=== PATIENT | female | born 2000 | race American Indian/Alaskan Native ===

== ENCOUNTER 2022-01-21 22:45 | Inpatient (IN) | payer MEDICAID ==
[~2022-01-21 22:45] MED LIST: ACETAMINOPHEN 325 MG TAB PO PRN; AMPICILLIN/NS 2 GM/100 ML 2 GM/100 ML BAG IV ONE; BUTORPHANOL 2 MG/1 ML INJ IV PRN; CARBOPROST TROMETHAMINE 250 MCG/1 ML INJ IM PRN; LIDOCAINE (2%) 20 MG/1 ML VIAL 20 ML MDV INFILTRATI ONE; LOPERAMIDE 2 MG CAP PO PRN; METHYLERGONOVINE MALEATE 0.2 MG/ML VIAL IM PRN; MINERAL OIL 30 ML ORAL LIQD PO PRN; NalbUPHINE 10 MG/1 ML INJ IV PRN; OXYTOCIN 10 UNIT/1 ML INJ IM PRN; TERBUTALINE 1 MG/1 ML INJ SUB-Q PRN; ePHEDrine SULFATE 50 MG/1 ML INJ IV PRN; fentaNYL 100 MCG/2 ML INJ IV PRN; miSOPROStol 200 MCG TAB PR PRN
[2022-01-21] MEDS ORDERED: OXYTOCIN DRIP 30 UNITS/500 ML BAG IV SCH (23:00)
[2022-01-21 23:30] LABS: Hematocrit 32.7 % (30.3-42.9); Hemoglobin 10.4 gm/dl (10.1-14.3); Mean Corpuscular HGB Conc 32 % (30-34); Mean Corpuscular Volume 75 fl (79-97); Platelet Count 372 K/mm3 (140-440); Red Blood Count 4.34 M/mm3 (3.65-5.03); Red Cell Distribution Width 16.2 % (13.2-15.2)
[2022-01-21] MEDS: LACTATED RINGERS 1,000 ML IV SCH (23:30)
[2022-01-22] MEDS ORDERED: ePHEDrine SULFATE 50 MG/1 ML INJ ONE (00:06)
[2022-01-22] MEDS ORDERED: ePHEDrine SULFATE 50 MG/1 ML INJ IV PRN (00:08)
[2022-01-22] MEDS ORDERED: NALOXONE 2 MG/2 ML INJ IV PRN (00:08)
[2022-01-22] MEDS: LACTATED RINGERS 1,000 ML IV SCH ×2 (00:25→05:00)
[2022-01-22] MEDS ORDERED: fentaNYL-BUPIV 2 MCG/ML-0.125% 200 MCG/100 ML BAG EPIDURAL SCH (01:00)
--- NOTE | 2022-01-22 01:10 | Anesthesia Consultation ---
Anesthesia Consult and Med Hx Date of service: 01/22/22 - Airway Anesthetic Teeth Evaluation: Poor ROM Head & Neck: Adequate Mental/Hyoid Distance: Adequate Mallampati Class: Class II Intubation Access Assessment: Probably Good - Pulmonary Exam CTA: Yes - Cardiac Exam Cardiac Exam: RRR - Pre-Operative Health Status ASA Pre-Surgery Classification: ASA2 Proposed Anesthetic Plan: Epidural - Pulmonary Hx Smoking: No Hx Asthma: Yes (last attack many years ago, no inhaler) COPD: No Hx Pneumonia: No - Cardiovascular System Hx Hypertension: No - Central Nervous System Hx Seizures: No Hx Psychiatric Problems: No - Endocrine Hx Renal Disease: No Hx End Stage Renal Disease: No Hx Hypothyroidism: No Hx Hyperthyroidism: No - Hematic Hx Anemia: No Hx Sickle Cell Disease: No - Other Systems Hx Alcohol Use: No Hx Substance Use: No Hx Obesity: Yes
--- NOTE | 2022-01-22 01:12 | Progress Note ---
Labor Epidural - Labor Epidural Start Time: 00:26 Stop Time: 00:39 Performed by:: ARLET OBRIEN Procedure: Patient is requesting a laboring epidural for laboring pain. Patient IDed, H&P reviewed, all questions and concerns were answered, and consent was signed. Timeout was performed at bedside. Patient in sitting position. Sterile prep and drape was performed. [3] ml of 1% lidocaine skin wheal at L[3]- L [4]. 17- gauge Tuohy epidural needle was advanced to loss of resistance with saline technique 8cmx 2 attempts. Single dural perforation via 24 guage spinal needle placed through the shaft of Epidural needle. Positive CSF via spinal needle. Negative CSF negative blood via Epidural needle. Epidural catheter advanced to [12] centimeters. [NEGATIVE] Aspiration [NEGATIVE] test dose. Negative Paresthesia. Sterile dressing applied. Patient tolerated procedure. Pain Score from 8/10 to 0/10. V/S's Stable.
[2022-01-22] MEDS: AMPICILLIN/NS 1 GM/50 ML 1 GM/50 ML BAG IV SCH ×2 (04:15→10:36)
--- NOTE | 2022-01-22 07:58 | History and Physical Report ---
History of Present Illness Date of examination: 01/22/22 Chief complaint: contractions History of present illness: Pt is a 21 year old -[place] female RHETT 01/20/22 at 40w2d who presented overnight with regular contractions that began on 01/20/22. She was admitted for labor overnight and has progressed to 8 cm. She denies leakage of fluid or vaginal bleeding. She has had care at [facility] since 7 wks complicated by morbid obesity, late entry to care at 17 wks, lapse in care between 17 and 32 wks, Rubella non-immune status, and GBS positive status. She was scheduled for an induction for oligohydramnios last week, but the patient left AMA after no cervical change after 2 days and a repeat ultrasound with a normal LYNDON. Past History Past Medical History: other (Obesity) Past Surgical History: D&C Family/Genetic History: cancer Social history: no significant social history - Obstetrical History Expected Date of Delivery: 01/20/22 Actual Gestation: 40 Week(s) 2 Day(s) : 1 Medications and Allergies Allergies Allergy/AdvReac Type Severity Reaction Status Date / Time No Known Allergies Allergy Verified 01/13/22 19:07 Home Medications Medication Instructions Recorded Confirmed Last Taken Type Vit-Fe Fumar-FA [ 1 tab PO QDAY 01/13/22 01/13/22 01/11/22 History Vitamin] Active Meds: Active Medications Acetaminophen (Acetaminophen 325 Mg Tab) 650 mg PO Q4H PRN PRN Reason: Pain, Mild (1-3) Butorphanol Tartrate (Butorphanol 2 Mg/1 Ml Inj) 1 mg IV Q2H PRN PRN Reason: Pain, Moderate(4-6) LABOR PAIN Carboprost Tromethamine (Carboprost Tromethamine 250 Mcg/1 Ml Inj) 250 mcg IM ONCE PRN PRN Reason: Uterine Bleeding Ephedrine Sulfate (Ephedrine Sulfate 50 Mg/1 Ml Inj) 10 mg IV Q2M PRN PRN Reason: Hypotension Fentanyl (Fentanyl 100 Mcg/2 Ml Inj) 100 mcg IV Q2H PRN PRN Reason: Pain,Severe (7-10) LABOR PAIN Oxytocin/Sodium Chloride (Pitocin/Ns 30 Unit/500ml) 30 units in 500 mls @ 2 mls/hr IV TITR NETO; Protocol Lactated Ringer's (Lactated Ringers) 1,000 mls @ 125 mls/hr IV DIRECT NETO Last Admin: 01/22/22 05:00 Dose: 125 mls/hr Oxytocin/Sodium Chloride (Pitocin/Ns 30 Unit/500ml) 30 units in 500 mls @ 40 mls/hr IV TITR NETO; Protocol Fentanyl/Bupivacaine/Sodium Chlor (Fentanyl-Bupiv 2 Mcg/Ml-0.125%) 200 mcg in 100 mls @ 12 mls/hr EPIDURAL TITR NETO; Protocol Ampicillin Sodium (Ampicillin/Ns 1 Gm/50 Ml) 1 gm in 50 mls @ 100 mls/hr IV Q4H NETO; Protocol Last Admin: 01/22/22 04:15 Dose: 100 mls/hr Loperamide HCl (Loperamide 2 Mg Cap) 2 mg PO ONCE PRN PRN Reason: give with Hemabate Methylergonovine Maleate (Methylergonovine Maleate 0.2 Mg/Ml Vial) 0.2 mg IM ONCE PRN PRN Reason: Uterine Bleeding Mineral Oil (Mineral Oil 30 Ml Oral Liqd) 30 ml PO QHS PRN PRN Reason: Constipation Misoprostol (Misoprostol 200 Mcg Tab) 800 mcg CA ONCE PRN PRN Reason: Uterine Bleeding Nalbuphine HCl (Nalbuphine 10 Mg/1 Ml Inj) 10 mg IV Q2H PRN PRN Reason: Pain, Moderate (4-6) Naloxone HCl (Naloxone 2 Mg/2 Ml Inj) 0.2 mg IV Q5M PRN PRN Reason: Respiratory sedation Oxytocin (Oxytocin 10 Unit/1 Ml Inj) 10 unit IM ONCE PRN PRN Reason: Uterine Bleeding Terbutaline Sulfate (Terbutaline 1 Mg/1 Ml Inj) 0.25 mg SUB-Q ONCE PRN PRN Reason: Hyperstimulation/Hypertonicity Review of Systems All systems: negative - Vital Signs Vital signs: Vital Signs Pulse Ox 85 01/21/22 21:27 Temp Pulse Resp BP Pulse Ox 98.3 F 90 14 135/65 97 01/21/22 21:30 01/22/22 07:58 01/21/22 21:30 01/22/22 07:58 01/22/22 07:49 - Physical Exam Breasts: Positive: deferred Abdomen: Positive: soft (obese, gravid ) Uterus: Positive: enlarged (gravid ) - Obstetrical FHR: auscultation normal Uterine Contraction Monitor Mode: External Cervical Dilatation: 8 Cervical Effacement Percentage: 100 station: -1 Uterine Contraction Pattern: Irregular Uterine Tone Measurement Phase: Resting Uterine Contraction Intensity: Mild Results Result Diagrams: 01/21/22 23:00 Abnormal lab results 01/21/22 Range/Units 23:00 MCV 75 L (79-97) fl MCH 24 L (28-32) pg RDW 16.2 H (13.2-15.2) % All other labs normal. Assessment and Plan A: IUP at 40w2d Active Labor Morbid Obesity Insufficient Care Anemia Rubella Non Immune status GBS Positive P: Admit to labor and delivery Ampicillin for GBS prophylaxis AROM- clear fluid Pitocin augmentation Continue to closely monitor maternal and status
[2022-01-22] MEDS: OXYTOCIN DRIP 30 UNITS/500 ML BAG IV SCH ×5 (08:30→11:13)
--- NOTE | 2022-01-22 14:00 | Procedure Note ---
OB Delivery Note - Delivery Date of Delivery: 01/22/22 Surgeon: MILE LOUIS Estimated blood loss: 300cc - Vaginal Delivery presentation: vertex Delivery position: OA Intrapartum events: PROM->1hr before delivery, decreased FHT variability, uterine atony (s/p Methergine 0.2 mg IM ) Delivery induction: none Delivery augmentation: rupture of membranes, pitocin Delivery monitor: external FHT, external uterine Route of delivery: Delivery placenta: spontaneous Episiotomy: none Delivery laceration: other (1st degree left periurethral hemostatic without repair ) Anesthesia: epidural - Infant A at 1 minute: 8 at 5 minutes: 9 Gender: Female (2730g (6lb 0oz) @ 1333 pm)
[2022-01-22] MEDS ORDERED: HYDROcodone/ACETAMINOPHEN 5-325 MG TAB PO PRN (18:02)
[2022-01-22] MEDS ORDERED: PROMETHAZINE 25 MG TAB PO PRN (18:02)
[2022-01-22] MEDS ORDERED: WITCH HAZEL/ GLYCERIN PAD TP PRN (18:02)
[2022-01-22] MEDS ORDERED: BENZOCAINE/MENTHOL 20/0.5% TOP SPRAY 56 GM TP PRN (18:02)
[2022-01-22] MEDS ORDERED: LANOLIN/ZINC/DIMETHICONE (LANSINOH) 7 GM TP PRN ×2 (18:02)
[2022-01-22] MEDS ORDERED: MAGNESIUM HYDROXIDE (MOM) ORAL LIQD UDC PO PRN (18:02)
[2022-01-22] MEDS ORDERED: diphenhydrAMINE 25 MG CAP PO PRN (18:02)
[2022-01-22] MEDS ORDERED: PROMETHAZINE 25 MG RECT SUPP PR PRN (18:02)
[2022-01-22] MEDS ORDERED: ONDANSETRON 4 MG/2 ML INJ IV PRN (18:02)
[2022-01-22] MEDS ORDERED: OXYTOCIN DRIP 30 UNITS/500 ML BAG IV SCH (18:02)
[2022-01-22] MEDS: IBUPROFEN 800 MG TAB PO SCH (18:20)
[2022-01-22] MEDS: DOCUSATE SODIUM 100 MG CAP PO SCH (18:20)
--- NOTE | 2022-01-22 20:00 | Post Anesthesia Evaluation ---
- Post Anesthesia Evaluation Patient Participated: Yes Airway Patent: Yes Stable Respiratory Function: Yes Nausea/Vomiting: No Temp > 96.8F: Yes Pain Manageable: Yes Adequeate Hydration: Yes Anesthesia Complications: No Block Receding Appropriately: Yes Patient on Ventilator: No
[2022-01-23] MEDS: IBUPROFEN 800 MG TAB PO SCH ×5 (00:08→23:34)
[2022-01-23] MEDS: DOCUSATE SODIUM 100 MG CAP PO SCH ×3 (00:09→23:34)
[2022-01-23] MEDS: FERROUS SULFATE 325 MG TAB PO SCH ×3 (00:09→23:34)
[2022-01-23 00:42] LABS: Hemoglobin 9.6 gm/dl (10.1-14.3)
[2022-01-23] MEDS ORDERED: TETANUS,DIPH,PERTUSS(ACELL) VACCINE 0.5 ML SYRINGE IM ONE (06:02)
[2022-01-23] MEDS: PRENATAL VIT27-FE FUMARATE-FOLIC ACID VIT TAB PO SCH (10:04)
[2022-01-23] MEDS ORDERED: MEASLES, MUMPS & RUBELLA 12,500 UNIT/0.5 ML VACCINE SUB-Q ONE (14:01)
--- NOTE | 2022-01-23 15:36 | Discharge Summary ---
Providers - Providers Date of Admission: 01/21/22 22:46 Date of discharge: 01/24/22 Attending physician: JANICE OCHOA 01/22/22 18:02 Consult to Classics Professor [CONS] Routine Reason For Exam: assistance with , SNS Primary care physician: JANICE OCHOA Hospitalization Reason for admission: active labor Delivery: Episiotomy: none Laceration: other (left periurethral laceration, healing as expected) Other procedures: none complications: none Discharge diagnosis: IUP at term delivered [place] baby: female Hospital course: Pt is a 21 year old -Citizen Of [place] female RHETT 01/20/22 at 40w2d who presented overnight with regular contractions that began on 01/20/22. She was admitted for labor overnight and has progressed to 8 cm. She denies leakage of fluid or vaginal bleeding. She has had care at [facility] since 7 wks complicated by morbid obesity, late entry to care at 17 wks, lapse in care between 17 and 32 wks, Rubella non-immune status, and GBS positive status. Viable female delivered via . PP course has been uncomplicated. Discharge criteria met, discharged on PPD#2. Condition at discharge: Good Disposition: 01 HOME / SELF CARE / HOMELESS - Discharge Diagnoses (1) Status post normal vaginal delivery Status: Acute (2) Anemia Status: Acute Qualifiers: Anemia type: iron deficiency Comment: Asymptomatic Increase iron rich foods into diet Plan - Discharge Medications Prescriptions: Ibuprofen [Motrin 800 MG tab] 800 mg PO Q8HR #30 tablet - Provider Discharge Summary Activity: routine, no sex for 6 weeks, no heavy lifting 4 weeks, no strenuous exercise Diet: other (Iron rich diet) Instructions: routine Additional instructions: [] Smoking cessation referral if applicable(refer to patient education folder for contact #) [] Refer to [facility] Booklet Call your doctor immediately for: * Fever > 100.5 * Heavy vaginal bleeding ( >1 pad per hour) * Severe persistent headache * Shortness of breath * Reddened, hot, painful area to leg or breast * Drainage or odor from incision. * Keep laceration site clean and dry at all times and follow doctor's instructions regarding bathing/showering - Follow up plan Follow up: JANICE OCHOA MD [Primary Care Provider] - 6 Weeks
[2022-01-24] MEDS: IBUPROFEN 800 MG TAB PO SCH (06:11)
[2022-01-24] MEDS: PRENATAL VIT27-FE FUMARATE-FOLIC ACID VIT TAB PO SCH (10:55)
[2022-01-24] MEDS: FERROUS SULFATE 325 MG TAB PO SCH (10:56)
[2022-01-24] MEDS: DOCUSATE SODIUM 100 MG CAP PO SCH (10:56)
[2022-01-24 17:28] VITALS: BP 135/88
== END 2022-01-24 17:10 | disposition home or self-care (01) | DRG 775 ==
LOC: APU 22:45 → LD 22:45 → TRG 22:45 → LD 22:46 → APU 01-22 00:03 → LD 01-22 00:03 → OB 01-22 16:17
PROVIDERS: ADMIT Obstetrics & Gynecology; ATTEND Obstetrics & Gynecology
PROC: 10E0XZZ Delivery of Products of Conception, External Approach (ICD-10-PCS; principal; 2022-01-22)
PROC: 10907ZC Drainage of Amniotic Fluid, Therapeutic from Products of Conception, Via Natural or Artificial Opening (ICD-10-PCS; 2022-01-22)
PROC: 0HQ9XZZ Repair Perineum Skin, External Approach (ICD-10-PCS; 2022-01-22)
PROC: 3E0S3BZ Introduction of Anesthetic Agent into Epidural Space, Percutaneous Approach (ICD-10-PCS; 2022-01-22)
PROC: 00HU33Z Insertion of Infusion Device into Spinal Canal, Percutaneous Approach (ICD-10-PCS; 2022-01-22)
PROC: 3E0234Z Introduction of Serum, Toxoid and Vaccine into Muscle, Percutaneous Approach (ICD-10-PCS; 2022-01-23)
PROC: 3E0134Z Introduction of Serum, Toxoid and Vaccine into Subcutaneous Tissue, Percutaneous Approach (ICD-10-PCS; 2022-01-23)
DX: O99.02 Anemia complicating childbirth (principal); O42.02 Full-term premature rupture of membranes, onset of labor within 24 hours of rupture; Z3A.40 40 weeks gestation of pregnancy; Z20.822 Contact with and (suspected) exposure to COVID-19; O99.824 Streptococcus B carrier state complicating childbirth; O99.214 Obesity complicating childbirth; E66.01 Morbid (severe) obesity due to excess calories; O76 Abnormality in fetal heart rate and rhythm complicating labor and delivery; O62.2 Other uterine inertia; J45.909 Unspecified asthma, uncomplicated; O99.52 Diseases of the respiratory system complicating childbirth; O70.0 First degree perineal laceration during delivery; Z37.0 Single live birth; Z23 Encounter for immunization
CPT/HCPCS: 36415; 59025; 85014; 85018; 85027; 86592; 86850; 86900; 86901; G0378; J3490; J0290; J2590; J7120; U0003